=== PATIENT | female | born 2000 | race Hispanic/Latino ===

== ENCOUNTER 2019-10-12 16:04 | Emergency (ER) | payer SELFPAY ==
[2019-10-12 16:44] LABS: URINE BILIRUBIN - DIPSTICK NEGATIVE (NEGATIVE); URINE BLOOD DIPSTICK SMALL (NEGATIVE); URINE COLOR YELLOW; URINE GLUCOSE - DIPSTICK NEGATIVE (NEGATIVE); URINE KETONE NEGATIVE (NEGATIVE); URINE LEUK ESTERASE NEGATIVE (NEGATIVE); URINE NITRITE - DIPSTICK NEGATIVE (Negative); URINE PH 6.5 (4.5-8.0); URINE PROTEIN - DIPSTICK NEGATIVE (NEG-TRACE); URINE SPECIFIC GRAVITY 1.025; URINE UROBILINOGEN - DIPSTICK 0.2 E.U./dL (0.2)
[2019-10-12 16:47] LABS: HEMATOCRIT 44.4 % (37.0-47.0); HEMOGLOBIN 14.1 g/dl (12.0-16.0); IMMATURE GRANULOCYTES 0.3 % (0.0-5.0); MEAN CELL VOLUME 92.9 fL CALC (80.0-100.0); MEAN CORPUSCULAR HGB 29.5 pG CALC (26.0-32.0); MEAN CORPUSCULAR HGB CONC 31.8 g/L CALC (32.0-36.0); NEUT# 5.92 thou/uL (2.00-7.15); RED BLOOD COUNT 4.78 mill/uL (4.20-5.60); RED CELL DISTRI WIDTH 14.1 % (11.5-15.5)
[2019-10-12 16:48] LABS: URINE AMORPH SEDIMENT MODERATE hpf (NONE-FEW); URINE SQUAMOUS EPITHELIAL CELL FEW EPI/hpf (0-FEW)
[2019-10-12 16:59] LABS: ALBUMIN 4.4 g/dL (3.2-5.0); ALKALINE PHOSPHATASE 109 u/l (38-126); ANION GAP 16 (6-22 (CALC)); BILIRUBIN, TOTAL 0.4 mg/dL (0.0-1.4); BUN 13 mg/dL (7-17); BUN/CREATININE RATIO 22 (12-20 (CALC)); CARBON DIOXIDE 22 mmol/l (22-30); CHLORIDE 105 mmol/l (95-108); CREATININE 0.6 mg/dL (0.5-1.0); GFR > 60 ML/MIN (>=60 (CALC)); GFR FOR AFR.AMER. > 60 ML/MIN (>=60 (CALC)); POTASSIUM 3.9 mmol/l (3.5-5.1); SGOT/AST 29 u/l (14-36); SODIUM 139 mmol/l (137-146); TOTAL PROTEIN 8.1 g/dL (6.3-8.2)
[2019-10-12 17:11] LABS: MYOGLOBIN 17 ng/mL (0 - 62)
[2019-10-12] MEDS ORDERED: NAPROXEN500 MG PO (18:00)
[2019-10-12] MEDS ORDERED: ONDANSETRON4 MG PO (18:05)
[2019-10-12 18:09] VITALS: BP 132/66
== END 2019-10-12 18:20 | disposition home or self-care (01) | DRG 313 ==
LOC: ED 16:04
PROVIDERS: Emergency Medicine
DX: R07.89 Other chest pain (principal)

== ENCOUNTER 2020-08-21 19:44 | Emergency (ER) | payer SELFPAY ==
[~2020-08-21] VITALS: Ht 160 cm; Wt 70.5 kg
[~2020-08-21 19:44] MED LIST: NAPROXEN500 MG PO; ONDANSETRON4 MG PO
[2020-08-21] MEDS ORDERED: AMOXICILLIN500 M2 PO (21:34)
[2020-08-21] MEDS ORDERED: CODEINE/GUAIFEN1 SOL PO (21:34)
[2020-08-21 21:45] VITALS: BP 124/62
[2020-08-22] MEDS ORDERED: AMOXICILLIN500 M2 PO (07:11)
== END 2020-08-21 22:03 | disposition home or self-care (01) | DRG 153 ==
LOC: ED 19:44
DX: J02.0 Streptococcal pharyngitis (principal); J40 Bronchitis, not specified as acute or chronic; R07.89 Other chest pain

== ENCOUNTER 2020-08-29 13:07 | Inpatient (IN) | payer SELFPAY ==
[~2020-08-29] VITALS: Ht 160 cm; Wt 89.8 kg
[~2020-08-29 13:07] MED LIST changes: +AMOXICILLIN500 M2 PO; +CODEINE/GUAIFEN1 SOL PO
--- NOTE | 2020-08-29 13:07 | NUR ---
PT AMB TO ROOM IN NO DISTRESS
[2020-08-29 13:37] LABS: HEMATOCRIT 46.9 % (37.0-47.0); IMMATURE GRANULOCYTES 0.7 % (0.0-5.0); MEAN CELL VOLUME 87.7 fL CALC (80.0-100.0); NEUT# 16.4 thou/uL (2.00-7.15); RED BLOOD COUNT 5.35 mill/uL (4.20-5.60); RED CELL DISTRI WIDTH 13.8 % (11.5-15.5)
[2020-08-29 13:43] LABS: ALBUMIN 4.5 g/dL (3.2-5.0); ALKALINE PHOSPHATASE 163 u/l (38-126); ANION GAP 14 (6-22 (CALC)); BILIRUBIN, TOTAL 0.7 mg/dL (0.0-1.4); BUN 8 mg/dL (7-17); BUN/CREATININE RATIO 10 (12-20 (CALC)); CARBON DIOXIDE 24 mmol/l (22-30); CHLORIDE 105 mmol/l (95-108); CREATININE 0.8 mg/dL (0.5-1.0); GFR > 60 ML/MIN (>=60 (CALC)); GFR FOR AFR.AMER. > 60 ML/MIN (>=60 (CALC)); POTASSIUM 3.7 mmol/l (3.5-5.1); SGOT/AST 68 u/l (14-36); SODIUM 140 mmol/l (137-146); TOTAL PROTEIN 8.5 g/dL (6.3-8.2)
--- NOTE | 2020-08-29 14:40 | NUR ---
PT SITTING UP IN BED STATES SHE IS FEELING "SOME BETTER" PT ASKING FOR PUDDING. DISCUSSED ADDITIONAL TESTING WITH PT AND
[2020-08-29 14:46] LABS: C-REACTIVE PROTEIN 5.2 mg/dL (0-0.9)
[2020-08-29 14:55] LABS: URINE BILIRUBIN - DIPSTICK NEGATIVE (NEGATIVE); URINE BLOOD DIPSTICK MODERATE (NEGATIVE); URINE COLOR YELLOW; URINE GLUCOSE - DIPSTICK NEGATIVE (NEGATIVE); URINE KETONE 15 mg/dL (NEGATIVE); URINE LEUK ESTERASE TRACE (NEGATIVE); URINE NITRITE - DIPSTICK NEGATIVE (Negative); URINE PH 7.5 (4.5-8.0); URINE PROTEIN - DIPSTICK NEGATIVE (NEG-TRACE)
[2020-08-29 15:04] LABS: URINE SQUAMOUS EPITHELIAL CELL MANY EPI/hpf (0-FEW)
--- NOTE | 2020-08-29 15:45 | NUR ---
PT MEDICATED FOR C/O HEADACHE 06/15. PT RESTING COMFORTABLY WITH O2@2LPM VIA NC. MLP IN AND DISCUSSED ADMIT. PT AGREEBALE
--- NOTE | 2020-08-29 16:30 | NUR ---
PT STATES HEADCHE RESOLVED. PO FLUIDS GIVEN. NOTED ASYMPTOMATIC HYPOTENSION, EDP UPDATED.
--- NOTE | 2020-08-29 16:44 | NUR ---
DR GARCIA AT BEDSIDE TO DISCUSS CLINICAL FINDINGS, TREATMENT AND ANSWER ANY QUESTIONS
--- NOTE | 2020-08-29 17:44 | NUR ---
PT TOLERATING IVF BOLUS WELL. PT SITTING UP IN BED COVNERSING WITH HER , REMAINS ON O2@2LPM VIA NC WITH O2 SAT 99%
--- NOTE | 2020-08-29 18:35 | NUR ---
Admission Note Report Given to: SBAR PRINTED TO FLOOR Transported by: X Wheelchair Stretcher Transported with: X Nurse Transporter X Patent IV X O2 X Community Specialist Location: ICU X [facility]
--- NOTE | 2020-08-29 18:38 | NUR ---
PT ARRIVED TO [facility] VIA STRETCHER ACCOMPANIED BY ER NURSE, PT ORIENTED TO ROOM AND CALL LIGHT, DINNER TRAY PROVIDED. NS BOLUS FROM ED CONTINUED. PT HYPOTENSIVE. TEDS APPLIED. PT VOICES NO NEEDS OR COMPLAINTS AT THIS TIME, CALL LIGHT IN REACH,CONTINUE TO MONITOR.
[2020-08-29 18:40] VITALS: BP 95/44
--- NOTE | 2020-08-29 19:28 | NUR ---
PT UPRIGHT IN BED WITH LIGHTS AND TV ON. PT REPORTS FEELING MUCH BETTER. NO S/O DISTRESS, DENIES SOB, PAIN, NAUSEA AT THIS TIME. PT 02SAT 99% ON 2LNC AT THIS TIME. NSBOLUS COMPLETED AT THIS TIME AND NS RUNNING @100 ORDERS PROVIDE TO 20 RAC/SITE APPEARS HEALTHY. ADMISSION AND ASSESSMENT COMPLETED AT THIS TIME. PT LOC, DENIES DIZZINESS, STATES SHE IS ABLE TO AMBULATE SAFELY TO RESTROOM. PT INSTRUCTED TO CALL IF SHE EXPERIENCES ANY DIZZINESS OR FEELS SHE NEEDS ASSISTANCE. CALL LIGHT IN HAND.
--- NOTE | 2020-08-29 21:30 | NUR ---
PT MEDICATED ORDERS PROVIDE. NO S/O DISTRESS NOTED. PT DENIES ANY NEEDS AT THIS TIME. CALL LIGHT W/IN REACH AND PT ENCOURAGED TO CALL NEEDS ARISE.
[2020-08-30] VITALS: BP 100/56
--- NOTE | 2020-08-30 | NUR ---
PT SLEEPING, V/S ASSESSED, PT DENIES ANY OTHER NEES.
--- NOTE | 2020-08-30 04:57 | NUR ---
V/S ASSESSED AND IVF REPLENISHED AT THIS TIME. PT DENIES ANY NEEDS AND REPORTS HAVING SLEPT WELL. CALL LIGHT AT BEDSIDE AND PT ENCOURAGED TO CALL.
[2020-08-30 05:00] VITALS: BP 108/67
[2020-08-30 05:51] LABS: HEMATOCRIT 41.6 % (37.0-47.0); HEMOGLOBIN 13.3 g/dl (12.0-16.0); IMMATURE GRANULOCYTES 0.8 % (0.0-5.0); MEAN CELL VOLUME 89.5 fL CALC (80.0-100.0); MEAN CORPUSCULAR HGB 28.6 pG CALC (26.0-32.0); NEUT# 11.17 thou/uL (2.00-7.15); RED BLOOD COUNT 4.65 mill/uL (4.20-5.60); RED CELL DISTRI WIDTH 14.1 % (11.5-15.5)
[2020-08-30 06:07] LABS: ALKALINE PHOSPHATASE 121 u/l (38-126); ANION GAP 10 (6-22 (CALC)); BUN 10 mg/dL (7-17); BUN/CREATININE RATIO 18 (12-20 (CALC)); CARBON DIOXIDE 22 mmol/l (22-30); CHLORIDE 113 mmol/l (95-108); CREATININE 0.6 mg/dL (0.5-1.0); GFR > 60 ML/MIN (>=60 (CALC)); GFR FOR AFR.AMER. > 60 ML/MIN (>=60 (CALC)); POTASSIUM 3.9 mmol/l (3.5-5.1); SGOT/AST 68 u/l (14-36); SODIUM 141 mmol/l (137-146)
[2020-08-30 06:20] LABS: ALBUMIN 3.5 g/dL (3.2-5.0); BILIRUBIN, TOTAL 0.3 mg/dL (0.0-1.4); C-REACTIVE PROTEIN 13.3 mg/dL (0-0.9); TOTAL PROTEIN 6.4 g/dL (6.3-8.2)
[2020-08-30 07:49] VITALS: BP 104/63
--- NOTE | 2020-08-30 07:49 | NUR ---
PT RESTING IN BED, NO SIGNS OF DISTRESS NOTED, RESP EVEN AND UNLABORED. PT ALERT AND ORIENTED X3, DISCUSSED POC, PT VOICES NO NEEDS OR COMPLAINTS AT THIS TIME, ASSESSMENT COMPLETED, CALL LIGHT IN REACH,CONTINUE TO MONITOR.
[2020-08-30 10:50] VITALS: BP 106/59
--- NOTE | 2020-08-30 11:16 | NUR ---
PT SATS 95% RA, IV SL SO PT MAY SHOWER, INSTRUCTED TO PULL CORD FOR ASSISTANCE. CONTINUE TO MONITOR.
[2020-08-30 15:40] VITALS: BP 113/55
[2020-08-30 19:00] VITALS: BP 113/65
--- NOTE | 2020-08-30 19:20 | NUR ---
CHANNEL SALES DIRECTOR in w/pt obtaining v/s. Pt denies any needs at this time. She reports to me feeling better than prior day. Call light is w/in her reach and I encouraged her to call if any needs arise.
--- NOTE | 2020-08-30 21:15 | NUR ---
PT MEDICATED ORDERS PROVIDE. PT DENIES ANY NEW SYMPTOMS, DENIES PAIN OR SOB. NO S/O DISTRESS NOTED. LUNG SOUNDS ARE CLEAR AT THIS TIME. RESP REGULAR NON-LABORED. OFFERED COMFORT MEASURES, DRINK AND SNACK TO PT/DENIED ANY NEEDS. ENCOURAGED PT TO CALL NEEDS DO ARISE, VERBALIZED UNDERDSTANDING. CALL LIGHT IN HAND. LIGHTS AND TV ARE ON FOR COMFORT/PREFERENCE.
[2020-08-31] VITALS: BP 107/54
--- NOTE | 2020-08-31 | NUR ---
AIDE IN WITH PT. PT DENIED ANY OTHER NEEDS, NO S/O DISTRESS NOTED.
--- NOTE | 2020-08-31 02:30 | NUR ---
PT SLEEPING, NO S/O DISTRESS NOTED. CALL LIGHT W/IN REACH.
[2020-08-31 04:00] VITALS: BP 121/63
[2020-08-31 04:48] LABS: HEMATOCRIT 37.8 % (37.0-47.0); HEMOGLOBIN 12.3 g/dl (12.0-16.0); MEAN CELL VOLUME 89.2 fL CALC (80.0-100.0); MEAN CORPUSCULAR HGB CONC 32.5 g/dL CAL (32.0-36.0); NEUT# 10.87 thou/uL (2.00-7.15); RED BLOOD COUNT 4.24 mill/uL (4.20-5.60); RED CELL DISTRI WIDTH 14.5 % (11.5-15.5)
[2020-08-31 05:05] LABS: ALBUMIN 3.3 g/dL (3.2-5.0); ALKALINE PHOSPHATASE 107 u/l (38-126); ANION GAP 8 (6-22 (CALC)); BILIRUBIN, TOTAL 0.2 mg/dL (0.0-1.4); BUN 13 mg/dL (7-17); BUN/CREATININE RATIO 22 (12-20 (CALC)); C-REACTIVE PROTEIN 5.4 mg/dL (0-0.9); CARBON DIOXIDE 25 mmol/l (22-30); CHLORIDE 114 mmol/l (95-108); CREATININE 0.6 mg/dL (0.5-1.0); GFR > 60 ML/MIN (>=60 (CALC)); GFR FOR AFR.AMER. > 60 ML/MIN (>=60 (CALC)); POTASSIUM 3.8 mmol/l (3.5-5.1); SGOT/AST 76 u/l (14-36); SODIUM 143 mmol/l (137-146)
[2020-08-31 08:06] VITALS: BP 105/58
--- NOTE | 2020-08-31 08:06 | NUR ---
RECIEVED REPORT FROM EVA SHEPHERD. PT SLEEPING IN SEMI FOWLERS POSITION UPON ENTERING ROOM. PT EASE TO AWAKEN. INTRODUCED SELF TO PT AND DISUCSSED POC. PT IS A/O X3. ASSESSMENT AND VITALS BTAINED BP 105/58, HR 61, O2 97% ON ROOM AIR. RESPIRATIONS ARE DIMINISHED. PT COMPLAINS OF SOB WHEN DEEP BREATHING. 1L NC AT BEDSIDE PRN. PT EDUCATED ON APPLYING IF NEEDED. PT VERBAILZED UNDERSTANDING.PT PRESENTS WITH NON PRODUCTIVE COUGH. HEART RHYTHM IS NORMAL WITH TELE IN PLACE. BOWEL SOUNDS ARE HYPOACTIVE. PT STATES "ITS BEEN A COUPLE DAYS" SINCE LAST BM. PT REFUSES ANYTHING TO ASSIST. RADIAL AND PEDAL PULSES ARE STRONG WITH NORMAL CAPILLARY REFILL. #22 IN LAC RUNNING WITH IVF PER ORDER, SITE APPEARS HEALTHY AND PATENT. BROOKE HOSE APPLIED.PT COMPLAINS OF 5/10 "CHEST PRESSURE" WHEN DEEP BREATHING. MD TO BE NOTFIED. PT DENIES OF ANY NEEDS AT THIS TIME. ALL SAFETY PRECAUTIONS AND ISOLATION ARE IN PLACE WIHT CALL LIGHT IN REACH. WILL CONTINUE TO MONITOR
--- NOTE | 2020-08-31 08:36 | NUR ---
DR KELLY AND Galo RAMESH, ANRP AT BEDSIDE DISCUSSING POC WIHT PT
[2020-08-31 10:30] VITALS: BP 103/54
--- NOTE | 2020-08-31 12:11 | NUR ---
PT RESTING IN SEMI FOWLERS POSITION UPON ENTERING ROOM.PT IS A/O X3. RESPIRATIONS ARE EVEN AND UNLABORED WITH NO SIGNS OF DISTRESS NOTED. PT STATES " SHE FEELS MUCH BETTER." PT REPORTS PRESSURE IN CHEST WHEN COUGHING. PT DENIES OF ANY PAIN OR DISCOMFORTS AT THIS TIME. ALL SAFETY AND ISOLATION PRECAUTIONS ARE IN PLACE WITH CALL LIGHT IN REACH. WILL CONTINUE TO MONITOR
[2020-08-31] MEDS ORDERED: ZITHROMAX250 MG PO (13:45)
[2020-08-31] MEDS ORDERED: DEXAMETHASON6 MG PO (13:45)
--- NOTE | 2020-08-31 14:07 | NUR ---
PT EDUCATED ON DISCHARGE PAPERWORK AND NEW MEDIACTIONS ZITHRO AND DEXAMETHASONE. PT VERBAILZED UNDERSTANDING. IV REMOVED WITH CATHATER STILL INTACT. PT TOLERATED WELL. AWAITING FOR TRANSPORTATION AT THIS TIME. ALL SAFETY AND ISOLATION PRECAUTIONS ARE IN PLACE WITH CALL LIGHT IN REACH. WILL CONTINUE TO MONITOR
--- NOTE | 2020-08-31 14:35 | NUR ---
Discharge instructions given. Patient verbalizes understanding of same. Discharged in stable condition via Wheelchair to Home with staff. All belongings sent with pt. PT DISCHARGE HOME WITH ALL DISCHARGE INSTRUCTIONS AND BELONGINGS VIA WHEELCHAIR ACCOMPAINED BY WRITTER IN STABLE CONDITION
--- NOTE | 2020-09-02 11:58 | NUR ---
PNEUMONIA POST DISCHARGE FOLLOWUP CALL COMPLETED TODAY, 09/02. PT. STATES SHE IS DOING BETTER. HER BREATHING HAS IMPROVED. NO FEVER OR CHILLS AT THIS TIME. PT. IS STILL EXPRERIENCING FATIGUE BUT FEELS SHE IS IMPROVING. DISCHARGE MEDICATIONS WERE OBTAINED AND ARE BEING TAKEN WITHOUT ISSUE. NO FOLLOW UP APPT HAS BEEN MADE YET. PT WAS ENCOURAGED TO MAKE FOLLOW UP APPT. SOON AND SHE SAID SHE WILL. THERE WERE NO NEEDS OR QUESTIONS EXPRESSED BY PATIENT AT THIS TIME.
== END 2020-08-31 14:35 | disposition home or self-care (01) | DRG 177 ==
LOC: ED 13:07 → ED-I 16:15 → ED 17:04 → MS2 17:05
PROVIDERS: Nurse Practitioner; ADMIT Internal Medicine; ATTEND Internal Medicine
DX: U07.1 COVID-19 (principal); J12.89 Other viral pneumonia; R11.0 Nausea; R74.01 Elevation of levels of liver transaminase levels
CPT/HCPCS: J1650; Q9967

== ENCOUNTER 2021-04-23 01:52 | Emergency (ER) | payer OTHER ==
[~2021-04-23] VITALS: Ht 160 cm; Wt 86.0 kg
[~2021-04-23 01:52] MED LIST changes: +DEXAMETHASON6 MG PO; +ZITHROMAX250 MG PO
[2021-04-23 02:59] LABS: IMMATURE GRANULOCYTES 0.1 % (0.0-5.0); MEAN CELL VOLUME 91.2 fL CALC (80.0-100.0); MEAN CORPUSCULAR HGB 29.5 pG CALC (26.0-32.0); MEAN CORPUSCULAR HGB CONC 32.4 g/dL CAL (32.0-36.0); NEUT# 4.56 thou/uL (2.00-7.15); RED BLOOD COUNT 4.91 mill/uL (4.20-5.60); RED CELL DISTRI WIDTH 13.4 % (11.5-15.5)
[2021-04-23 03:01] LABS: HEMATOCRIT 44.8 % (37.0-47.0); HEMOGLOBIN 14.5 g/dl (12.0-16.0)
[2021-04-23 03:08] LABS: ALKALINE PHOSPHATASE 141 u/l (38-126); ANION GAP 13 (6-22 (CALC)); BILIRUBIN, TOTAL 0.2 mg/dL (0.0-1.4); BUN 12 mg/dL (7-17); BUN/CREATININE RATIO 18 (12-20 (CALC)); CARBON DIOXIDE 25 mmol/l (22-30); CHLORIDE 105 mmol/l (95-108); CREATININE 0.6 mg/dL (0.5-1.0); D-DIMER 0.19 mg/L (0.19-0.60); GFR > 60 ML/MIN (>=60 (CALC)); GFR FOR AFR.AMER. > 60 ML/MIN (>=60 (CALC)); POTASSIUM 3.8 mmol/l (3.5-5.1); SGOT/AST 55 u/l (14-36); SODIUM 139 mmol/l (137-146); TOTAL PROTEIN 7.2 g/dL (6.3-8.2)
[2021-04-23 03:12] LABS: ACT PARTIAL THROMBO TIME 28.3 SECONDS (20.0-32.5); PROTHROMBIN TIME 10.2 SECONDS (9.0-12.5)
[2021-04-23 03:20] LABS: MYOGLOBIN 35 ng/mL (0 - 62)
[2021-04-23] MEDS ORDERED: TORADOL PO (03:39)
[2021-04-23 04:00] VITALS: BP 108/74
== END 2021-04-23 04:08 | disposition home or self-care (01) | DRG 313 ==
LOC: ED 01:52
PROVIDERS: Family Medicine
DX: R07.89 Other chest pain (principal); R74.01 Elevation of levels of liver transaminase levels

== ENCOUNTER 2022-05-30 17:07 | Emergency (ER) | payer OTHER ==
[2022-05-30] VITALS (8 sets, daily range): BP systolic 100–116; BP diastolic 62–89
[~2022-05-30] VITALS: Ht 160 cm; Wt 59.1 kg
[~2022-05-30 17:07] MED LIST changes: +TORADOL PO
[2022-05-30 17:53] LABS: HEMATOCRIT 39.9 % (37.0-47.0); HEMOGLOBIN 13.3 g/dl (12.0-16.0); IMMATURE GRANULOCYTES 0.2 % (0.0-5.0); MEAN CELL VOLUME 90.5 fL CALC (80.0-100.0); MEAN CORPUSCULAR HGB 30.2 pG CALC (26.0-32.0); MEAN CORPUSCULAR HGB CONC 33.3 g/dL CAL (32.0-36.0); NEUT# 7.91 thou/uL (2.00-7.15); RED BLOOD COUNT 4.41 mill/uL (4.20-5.60); RED CELL DISTRI WIDTH 12.8 % (11.5-15.5)
[2022-05-30 18:07] LABS: URINE BILIRUBIN - DIPSTICK NEGATIVE (NEGATIVE); URINE BLOOD DIPSTICK SMALL (NEGATIVE); URINE COLOR YELLOW; URINE GLUCOSE - DIPSTICK NEGATIVE (NEGATIVE); URINE KETONE TRACE mg/dL (NEGATIVE); URINE LEUK ESTERASE NEGATIVE (NEGATIVE); URINE PROTEIN - DIPSTICK NEGATIVE (NEG-TRACE); URINE SPECIFIC GRAVITY 1.015; URINE UROBILINOGEN - DIPSTICK 0.2 E.U./dL (0.2)
[2022-05-30 18:08] LABS: URINE NITRITE - DIPSTICK NEGATIVE (Negative)
[2022-05-30 18:12] LABS: ALBUMIN 3.8 g/dL (3.2-5.0); ALKALINE PHOSPHATASE 121 u/l (38-126); ANION GAP 11 (6-22 (CALC)); BILIRUBIN, TOTAL 0.2 mg/dL (0.0-1.4); BUN 7 mg/dL (7-17); BUN/CREATININE RATIO 13 (12-20 (CALC)); CARBON DIOXIDE 21 mmol/l (22-30); CHLORIDE 107 mmol/l (95-108); CREATININE 0.6 mg/dL (0.5-1.0); GFR FOR AFR.AMER. > 60 ML/MIN (>=60 (CALC)); GFR OTHER RACES > 60 ML/MIN (>=60 (CALC)); POTASSIUM 3.9 mmol/l (3.5-5.1); SGOT/AST 31 u/l (14-36); SODIUM 134 mmol/l (137-146); TOTAL PROTEIN 6.8 g/dL (6.3-8.2)
[2022-05-30 18:13] LABS: URINE SQUAMOUS EPITHELIAL CELL MANY EPI/hpf (0-FEW)
[2022-05-30 18:58] LABS: BETA-HCG, QUANT(RESULT NUMBER) 171590 mIU/mL
[2022-05-30] MEDS ORDERED: COLACE100 MG PO (20:22)
== END 2022-05-30 21:04 | disposition home or self-care (01) | DRG 833 ==
LOC: ED 17:07
PROVIDERS: Family Medicine
DX: O26.891 Other specified pregnancy related conditions, first trimester (principal); R11.2 Nausea with vomiting, unspecified; O99.611 Diseases of the digestive system complicating pregnancy, first trimester; K59.00 Constipation, unspecified; Z3A.08 8 weeks gestation of pregnancy

== ENCOUNTER 2023-03-01 01:53 | Emergency (ER) | payer OTHER ==
[~2023-03-01 01:53] MED LIST changes: +COLACE100 MG PO
== END 2023-03-01 02:10 | disposition left against medical advice (07) | DRG 951 ==
LOC: ED 01:53 → LWOBS 02:10
DX: Z53.21 Procedure and treatment not carried out due to patient leaving prior to being seen by health care provider (principal)

== ENCOUNTER 2023-03-29 02:28 | Emergency (ER) | payer OTHER ==
[~2023-03-29] VITALS: Ht 160 cm; Wt 92.0 kg
[2023-03-29 02:35] VITALS: BP 123/80
[2023-03-29 02:45] VITALS: BP 113/77
[2023-03-29 03:00] VITALS: BP 119/82
[2023-03-29 03:08] LABS: BASO% 0.8 % (0-3); EOS% 4.1 % (0-8); HEMOGLOBIN 11.6 g/dl (12.0-16.0); IMMATURE GRANULOCYTES 0.3 % (0.0-5.0); LYMPH% 33.4 % (15-41); MEAN CORPUSCULAR HGB 24.7 pG CALC (26.0-32.0); MEAN CORPUSCULAR HGB CONC 30.5 g/dL CAL (32.0-36.0); MONO% 11.3 % (2-13); NEUT# 3.27 thou/uL (2.00-7.15); NEUT% 50.1 % (42-76); RED BLOOD COUNT 4.69 mill/uL (4.20-5.60); RED CELL DISTRI WIDTH 17.2 % (11.5-15.5)
[2023-03-29 03:15] VITALS: BP 118/75
[2023-03-29 03:26] LABS: ALBUMIN 4.3 g/dL (3.2-5.0); ALKALINE PHOSPHATASE 134 u/l (38-126); ANION GAP 12 (6-22 (CALC)); BILIRUBIN, TOTAL 0.2 mg/dL (0.02-1.3); BUN 13 mg/dL (7-17); BUN/CREATININE RATIO 21 (12-20 (CALC)); CARBON DIOXIDE 21 mmol/l (22-30); CHLORIDE 110 mmol/l (95-108); CREATININE 0.6 mg/dL (0.5-1.0); GFR FOR AFR.AMER. > 60 ML/MIN (>=60 (CALC)); GFR OTHER RACES > 60 ML/MIN (>=60 (CALC)); POTASSIUM 4.1 mmol/l (3.5-5.1); SGOT/AST 44 u/l (14-36); SODIUM 140 mmol/l (137-146); TOTAL PROTEIN 7.3 g/dL (6.3-8.2)
[2023-03-29 03:30] VITALS: BP 121/68
[2023-03-29 03:38] LABS: ACT PARTIAL THROMBO TIME 30.3 SECONDS (20.0-32.5); PROTHROMBIN TIME 9.9 SECONDS (9.0-12.5)
[2023-03-29 03:52] LABS: URINE BILIRUBIN - DIPSTICK NEGATIVE (NEGATIVE); URINE BLOOD DIPSTICK NEGATIVE (NEGATIVE); URINE COLOR YELLOW; URINE GLUCOSE - DIPSTICK NEGATIVE (NEGATIVE); URINE KETONE NEGATIVE (NEGATIVE); URINE LEUK ESTERASE NEGATIVE (NEGATIVE); URINE PROTEIN - DIPSTICK NEGATIVE (NEG-TRACE); URINE UROBILINOGEN - DIPSTICK 0.2 E.U./dL (0.2)
[2023-03-29 03:54] LABS: URINE NITRITE - DIPSTICK NEGATIVE (Negative)
[2023-03-29 03:58] LABS: URINE AMORPH SEDIMENT MANY hpf (NONE-FEW); URINE MUCUS FEW hpf (NONE-FEW); URINE SQUAMOUS EPITHELIAL CELL MODERATE EPI/hpf (0-FEW)
[2023-03-29] MEDS ORDERED: PROAIR RES108 MCG/AC PO (06:13)
[2023-03-29] MEDS ORDERED: PREDNISONE20 MG PO (06:13)
[2023-03-29 06:26] VITALS: BP 121/68
== END 2023-03-29 06:26 | disposition home or self-care (01) | DRG 206 ==
LOC: ED 02:28
PROVIDERS: Emergency Medicine
DX: J98.8 Other specified respiratory disorders (principal); B97.89 Other viral agents as the cause of diseases classified elsewhere; Z20.822 Contact with and (suspected) exposure to COVID-19